=== PATIENT | male | born 1950 | race Caucasian/White ===

== ENCOUNTER 2018-08-27 12:09 | Day surgery (SDC) | payer MEDICARE, MEDICAID ==
[~2018-08-27] VITALS: Ht 182.9 cm; Wt 77.3 kg
[~2018-08-27 12:09] MED LIST: ATENOLOL
[2018-08-27] MEDS ORDERED: fentaNYL/PF 50MCG/1 ML 2ML syringe ONE (12:16)
[2018-08-27] MEDS ORDERED: LIDOcaine Viscous 15ml cup ONE (12:16)
[2018-08-27] MEDS ORDERED: MIDAZolam 5mg/5ml vial ONE (12:16)
[2018-08-27 12:18] VITALS: BP 170/97
[2018-08-27 13:30] VITALS: BP 169/107
[2018-08-27] MEDS ORDERED: ATEN25TA PO (13:31)
[2018-08-27 13:40] VITALS: BP 160/107
[2018-08-27 13:50] VITALS: BP 160/101
[2018-08-27 14:00] VITALS: BP 136/102
== END 2018-08-27 14:19 | disposition home or self-care (01) ==
LOC: GI LAB 12:09
PROVIDERS: ATTEND Internal Medicine Gastroenterology
DX: I85.00 Esophageal varices without bleeding (principal); K44.9 Diaphragmatic hernia without obstruction or gangrene; I10 Essential (primary) hypertension; F17.210 Nicotine dependence, cigarettes, uncomplicated; J44.9 Chronic obstructive pulmonary disease, unspecified; I00 Rheumatic fever without heart involvement; F32.9 Major depressive disorder, single episode, unspecified; M48.8X9 Other specified spondylopathies, site unspecified; Z86.19 Personal history of other infectious and parasitic diseases; Z90.89 Acquired absence of other organs; Z79.899 Other long term (current) drug therapy; Z98.890 Other specified postprocedural states
CPT/HCPCS: 43235; G0500; J2250; J3010; J7030; 99152

== ENCOUNTER 2019-11-18 08:58 | Day surgery (SDC) | payer MEDICARE, MEDICAID ==
[~2019-11-18] VITALS: Ht 182.9 cm; Wt 81.8 kg
[~2019-11-18 08:58] MED LIST changes: +ATEN25TA PO; -ATENOLOL
[2019-11-18 09:14] VITALS: BP 189/107
[2019-11-18] MEDS ORDERED: fentaNYL/PF 50MCG/1 ML 2ML syringe ONE (09:16)
[2019-11-18] MEDS ORDERED: MIDAZolam 5mg/5ml vial ONE (09:16)
[2019-11-18] MEDS ORDERED: LIDOcaine Viscous 15ml cup ONE (09:17)
[2019-11-18] MEDS ORDERED: NO HOME MEDS (09:25)
[2019-11-18 11:00] VITALS: BP 166/106
[2019-11-18 11:10] VITALS: BP 152/90
[2019-11-18 11:20] VITALS: BP 152/105
[2019-11-18 11:30] VITALS: BP 158/98
[2019-11-18 11:40] VITALS: BP 155/103
== END 2019-11-18 11:58 | disposition home or self-care (01) ==
LOC: GI LAB 08:58
PROVIDERS: ATTEND Internal Medicine Gastroenterology
DX: I85.00 Esophageal varices without bleeding (principal); K44.9 Diaphragmatic hernia without obstruction or gangrene
CPT/HCPCS: 43235; J2250; J3010; J7040; 99152; 99153; A4620

== ENCOUNTER 2020-04-15 18:06 | Emergency (ER) | payer MEDICARE, MEDICAID ==
[~2020-04-15] VITALS: Ht 185.4 cm; Wt 76.0 kg
[~2020-04-15 18:06] MED LIST changes: -ATEN25TA PO; +NO HOME MEDS
[2020-04-15] MEDS ORDERED: atenolol 25mg tablet PO ONE (18:35)
[2020-04-15] MEDS ORDERED: hyDRALAzine 10mg tablet PO STA (19:32)
[2020-04-15] MEDS ORDERED: hydrALAZINE 25 MG tablet PO STA (21:18)
--- NOTE | 2020-04-15 21:52 | NUR ---
PATIENT HX OF TRIPLE A, NO ABDOMINAL BRUIT OR PULSE ASSESSED BI-LATERAL BP WNL OF EACH OTHER
[2020-04-15] MEDS ORDERED: ketorolac tromethamine 15mg/ml inj. IM ONE (22:10)
[2020-04-15] MEDS ORDERED: ATEN-27 PO (22:13)
[2020-04-15 22:30] VITALS: BP 148/97
== END 2020-04-15 22:34 | disposition home or self-care (01) ==
LOC: ER 18:06
DX: I10 Essential (primary) hypertension (principal); J44.9 Chronic obstructive pulmonary disease, unspecified; Z79.899 Other long term (current) drug therapy
CPT/HCPCS: 93005; 96372; 99285; J1885; 99284